=== PATIENT | female | born 1950 | race Caucasian/White ===

== ENCOUNTER 2020-07-23 16:43 | Emergency (ER) | payer MEDICARE ==
[~2020-07-23] VITALS: Ht 165.1 cm; Wt 68.0 kg
[~2020-07-23 16:43] MED LIST: FLEXERIL10 MG PO; SYNTHROID0.025 MG PO
== END 2020-07-23 17:28 | disposition home or self-care (01) ==
LOC: ED 16:43
DX: S01.01XA Laceration without foreign body of scalp, initial encounter (principal); S09.90XA Unspecified injury of head, initial encounter; Z79.899 Other long term (current) drug therapy; Z98.51 Tubal ligation status; W00.2XXA Other fall from one level to another due to ice and snow, initial encounter; Y93.89 Activity, other specified; Y92.89 Other specified places as the place of occurrence of the external cause; Y99.8 Other external cause status